=== PATIENT | female | born 1995 | race Caucasian/White ===

== ENCOUNTER → 2017-04-02 | Outpatient (CLI) | payer OTHER ==
[~2017-04-02] MED LIST: IBUPROFEN800 MG PO; METFORMIN PO
--- NOTE | ~2017-04-02 | US98 ---
[facility] A Service of [facility] & [facility] RADIOLOGY TEXT RESULTS PATIENT: NATALIA ATKINSON LOCATION: [facility] : [birth year] UNIT #: [id number] AGE: [address]: ELOINA GARCIA APRN SEX: F ORDER DR: [id number] [facility] [address] [place], [place] [address] [id number] O MR#: [id number] Acc #: [id number] NAME: NATALIA ATKINSON : 1995 SEX: F STUDY DATE/TIME: 04/02/2017 9:35 UNIT: [facility] ROOM: STUDY DESCRIPTION: US Pelvic Non-OB Complete Attending Physician: Eloina Garcia Aprn Referring Physician: Eloina Garcia Aprn Ordering Physician: Eloina Garcia Aprn Primary Care Physician: Eloina Garcia Aprn MEDICAL IMAGING REPORT This report is preliminary unless electronic signature is present EXAM Transabdominal and transvaginal pelvic ultrasound 04/02/2017 HISTORY Pelvic pain and diffuse vaginal bleeding for 2 weeks. Pain with intercourse FINDINGS Transabdominal and transvaginal pelvic ultrasound was performed. Endovaginal ultrasound was performed for attempted better visualization of the adnexal structures. The bladder is normal in appearance. Uterus measures 8.7 cm craniocaudal x 4.4 cm AP x 4.4 cm transverse. Endometrial stripe measures 4 mm. The right ovary measured 1.4 cm x 1.3 cm x 1.5 cm while the left ovary measured 1.1 cm x 2.1 cm x 7 mm. Small follicles are seen in both ovaries. Color flow Doppler images show normal blood flow to both ovaries. There is no adnexal mass. There is minimal free fluid in the pelvis. IMPRESSION Negative transabdominal and transvaginal pelvic ultrasound. Dictated by... David Hsu M.D. THIS IS AN ELECTRONICALLY VERIFIED REPORT David Hsu M.D. at 04/03/2017 7:49 AM LIZET/brii TD: 04/02/2017 14:49 JOB #: [id number] [facility] A Service of [facility] & [facility] RADIOLOGY TEXT RESULTS PATIENT: NATALIA ATKINSON LOCATION: [facility] #: [id number] : [birth year] UNIT #: [id number] AGE: [address]: ELOINA GARCIA APRN SEX: F ORDER DR: MEDICAL IMAGING REPORT Page 1 of 1 COPY
== END | disposition home or self-care (01) ==
LOC: CWCC 09:21
DX: N93.9 Abnormal uterine and vaginal bleeding, unspecified (principal); R10.2 Pelvic and perineal pain
CPT/HCPCS: 76830; 76856